=== PATIENT | male | born 1990 | race African-American/Black ===

== ENCOUNTER 2016-10-08 19:13 | Emergency (ER) | payer OTHER ==
[~2016-10-08] VITALS: Ht 167.6 cm; Wt 77.1 kg
[~2016-10-08 19:13] MED LIST: ANAPROX DS550 M1 PO; Aspirin E.C. PO; Augmentin PO; CLOTRIM ANTIFUN15 GM TP; FLUCONAZOLE150 MG PO; KENALOG,ARISTOC80 G1 TP; MOTRIN400 MG PO; NAPROXEN500 MG PO; Tylenol Regular Stre PO; Ultram PO; VICODIN 5-3001 EACH PO
[2016-10-08] MEDS ORDERED: NAPROXEN500 MG PO (21:18)
[2016-10-08 21:32] VITALS: BP 154/88
== END 2016-10-08 21:40 | disposition home or self-care (01) ==
LOC: EME 19:13 → EXP 19:13
DX: L84 Corns and callosities (principal); I10 Essential (primary) hypertension
CPT/HCPCS: 99281; 99284

== ENCOUNTER 2016-11-10 20:51 | Emergency (ER) | payer OTHER ==
[~2016-11-10] VITALS: Ht 167.6 cm; Wt 79.3 kg
[2016-11-10 20:57] VITALS: BP 161/107
== END 2016-11-11 00:20 | disposition left against medical advice (07) ==
LOC: EME 20:51
DX: M25.511 Pain in right shoulder (principal); Z53.21 Procedure and treatment not carried out due to patient leaving prior to being seen by health care provider

== ENCOUNTER 2016-12-16 17:14 | Emergency (ER) | payer OTHER ==
[~2016-12-16] VITALS: Ht 167.6 cm; Wt 73.2 kg
[2016-12-16 17:53] LABS: EOSINOPHIL (%) 0.4 % (0-5); HEMATOCRIT 44.6 % (38.0-50.0); IMMATURE GRANULOCYTE (%) 0.1 % (0.0-0.7); INSTRUMENT ABS NEUTROPHIL CT 3.9 K/uL; LYMPHOCYTE COUNT 3.1 K/uL (1.0-2.8); MCH 30.8 PG (29.0-34.0); MCHC 35.2 G/DL (30.0-36.0); MCV 87.5 FL (86-99); MEAN PLAT.VOLUME 9.7 uM^3 (9.0-12.4); MONOCYTE COUNT 0.4 K/uL (0-0.8); NEUTROPHIL (%) 52.2 % (45-76); NEUTROPHIL COUNT 3.9 K/uL (1.8-6.4); PLATELET COUNT 197 K/uL (156-360); RBC DIS.WIDTH-CV 11.6 % (11.8-14.6); RBC DIS.WIDTH-SD 37.4 % (39-53); WHITE BLOOD COUNT 7.5 K/uL (4.1-10.2)
[2016-12-16 18:01] LABS: CHLORIDE 105 mEq/L (99-109); POTASSIUM 2.9 mEq/L (3.7-5.4); SODIUM 142 mEq/L (136-147)
[2016-12-16 18:03] LABS: GLUCOSE 87 mg/dL (70-99)
[2016-12-16 18:04] LABS: ANION GAP 17 MEQ/L (2-14)
[2016-12-16 18:05] LABS: TOTAL BILIRUBIN 0.9 mg/dL (0.0-1.0)
[2016-12-16 18:06] LABS: SERUM ETHYL ALCOHOL 196 mg/dL
[2016-12-16 18:07] LABS: ALKALINE PHOSPHATASE 64 IU/L (3-129); GFR ESTIMATE (CALCULATED) > 59 mL/min/
[2016-12-16 18:08] LABS: UREA NITROGEN (BUN) 10 mg/dL (9-23)
[2016-12-16 21:14] LABS: ADD MEDTOX COMMENT Y; AMPHETAMINE NEGATIVE (500 ng/mL); BARBITURATES NEGATIVE (200 ng/mL); BENZODIAZEPINES NEGATIVE (150 ng/mL); COCAINE NEGATIVE (150 ng/mL); INTERNAL CONTROLS VALID? YES; METHADONE NEGATIVE (200 ng/mL); METHAMPHETAMINE NEGATIVE (500 ng/mL); OPIATES (MORPHINE) NEGATIVE (100 ng/mL); OXYCODONE NEGATIVE (100 ng/mL); PHENCYCLIDINE NEGATIVE (25 ng/mL); PROPOXYPHENE NEGATIVE (300 ng/mL); THC CANNABINOIDS PRESUMPTIVE POSITIVE (50 ng/mL); TRICYCLIC ANTIDEPRESSANTS NEGATIVE (300 ng/mL)
[2016-12-17 03:19] VITALS: BP 142/83
== END 2016-12-17 03:28 | disposition home or self-care (01) ==
LOC: EME → EDBD 17:14 → EME 17:14
PROVIDERS: Emergency Medicine
DX: F10.129 Alcohol abuse with intoxication, unspecified (principal); Y90.6 Blood alcohol level of 120-199 mg/100 ml; F32.9 Major depressive disorder, single episode, unspecified; F17.200 Nicotine dependence, unspecified, uncomplicated
CPT/HCPCS: 80053; 84999; 85025; 90837; 99281; 99285; G0480; J2550

== ENCOUNTER 2017-11-03 12:09 | Emergency (ER) | payer OTHER ==
[~2017-11-03] VITALS: Ht 167.6 cm; Wt 82.4 kg
[2017-11-03] MEDS ORDERED: XYLOCAINE VISC100 ML PO ×2 (15:53→15:56)
[2017-11-03 16:18] VITALS: BP 145/87
== END 2017-11-03 16:19 | disposition home or self-care (01) ==
LOC: EME 12:09
DX: J02.9 Acute pharyngitis, unspecified (principal)
CPT/HCPCS: 87651 90; 99281; 99283